=== PATIENT | female | born 1960 | race Caucasian/White ===

== ENCOUNTER 2016-04-13 07:41 | Inpatient (IN) ==
[2016-04-13] MEDS ORDERED: Mag Hydrox/Al Hydrox/Simeth 30 ML UDC PO PRN (07:50)
[2016-04-13] MEDS ORDERED: Haloperidol Lactate 5 MG/ML VIAL IM PRN (07:50)
[2016-04-13] MEDS ORDERED: *HR* LORazepam 1 MG TABLET PO PRN (07:50)
[2016-04-13] MEDS ORDERED: traZODone 50 MG TABLET PO PRN (07:50)
[2016-04-13] MEDS ORDERED: Ibuprofen 400 MG TABLET PO PRN (07:50)
[2016-04-13] MEDS ORDERED: MOM Conc 10 ML UD.LIQ PO PRN (07:50)
[2016-04-13] MEDS ORDERED: *HR* LORazepam 2 MG/ML VIAL IM PRN (07:50)
[2016-04-13] MEDS ORDERED: SIMVASTATIN 80 MG PO SCH (09:00)
[2016-04-13] MEDS: Sulfamethoxazole/Trimeth DS 1 EACH TABLET PO SCH ×2 (10:38→21:03)
[2016-04-13] MEDS: Lithium Carbonate 300 MG CAPSULE PO SCH (10:40)
[2016-04-13] MEDS: Topiramate 100 MG TABLET PO SCH ×2 (10:40→21:03)
--- NOTE | 2016-04-13 12:23 | Psychiatry History & Physical ---
Date of Encounter: 04/13/16 Time of Encounter: 11:40 History of Present Illness Patient Stated Chief Complaint: "I have thoughts of hurting myself." Medicare Admission Attestation: For traditional Medicare patients the provided hospital inpatient services are reasonable and necessary and in the case of services not specified as inpatient -only under 42 CFR 419.22 (n), that they are appropriately provided as inpatient services in accordance 42 CFR 412.3. For Critical Access Hospital the patient may reasonably be expected to be discharged or transferred to a hospital within 96 hours after admission to the Critical Access Hospital. Admitted From: Direct Admit Plans for Post Hospital Care: Home History of Present Illness: Ms. Cuevas is a 56 year old female with a history of bipolar disorder and anxiety symptoms. She presented to an outside hospital after having intrusive suicidal thoughts from what she believes was a medication issue. Patient was accepted and admitted to [facility] for psychiatric stabilization. During a recent outpatient appointment in early March patient's lithium was decreased and her Topamax was also decreased. She also stopped Depakote as she was taking this at a low dose. She does continue to take Saphris 10 mg at bedtime, Cymbalta 120 mg by mouth daily. Patient noted that with the decrease of the Topamax she started to have intrusive suicidal thoughts. She does not want to hurt herself and sometimes the thoughts are not even of killing herself just of hurting herself. This worsened over the past week or so as she went down to the lower dose of Topamax. Her psychiatrist recommended the dosage be increased back to 100 mg twice a day but patient had not noted any improvement and so she went to the ER. Today she continues to report intrusive suicidal thoughts although they have improved. She reports that her mood is slightly better now that she knows she is in a safe place. She denies auditory or visual hallucinations. She does have a recent admission to the hospital within the past year (August 2015) and at that point the Depakote was added to her other medications. Patient is aware that she is on multiple mood stabilizers and that many of these can be causing interactions. Past Med Surg Social Fam HX - Past Medical History Medical history: GERD - Past Psychiatric History Psychiatric history: Reports: anxiety, bipolar, depression, prior suicide attempt, previous psychiatric hospitalization Past psychiatric history details: Patient has a long-standing psychiatric history with previous admissions as well as a suicide attempt in the remote past. Family psychiatric history: No Family History of Suicide: None - Past Surgical History Surgical History: , cholecystectomy, hysterectomy - Social History Smoking Status: Never smoker Smokeless Tobacco Status: No Alcohol use: none Drug use: none Occupational status: disabled Current living situation: Home Activity Level: Independent ambulation Medications & Allergies Duloxetine HCl [Cymbalta] 120 mg PO DAILY 03/05/16 [History] Omeprazole [PriLOSEC] 40 mg PO BID 03/05/16 [History] Oxybutynin Chloride [Ditropan Xl] 10 mg PO DAILY 03/05/16 [History] Simvastatin [Zocor] 80 mg PO DAILY 03/05/16 [History] Asenapine Maleate [Saphris] 10 mg SL HS 04/13/16 [History] Divalproex (24 HR) [Depakote ER (24 HR)] 250 mg PO HS 04/13/16 [History] Ketorolac [Toradol] 10 mg PO Q8H 04/13/16 [History] Levothyroxine [Synthroid] 100 mcg PO DAILY 04/13/16 [History] Andrews Carbonate ER [Lithobid] 300 mg PO HS 04/13/16 [History] Topiramate [Topamax] 50 mg PO BID 04/13/16 [History] Allergies No Known Allergies Allergy (Verified 03/05/16 12:55) Review of Systems Constitutional: Denies: fever, chills, weakness, weight change Eyes: Denies: eye pain, vision change Ears, Nose, Throat: Denies: ear pain, throat pain, dental pain, hearing loss, congestion Cardiovascular: Denies: chest pain, palpitations, dyspnea on exertion Respiratory: Denies: cough, dyspnea, wheezes Gastrointestinal: Denies: abdominal pain, nausea, vomiting, diarrhea, constipation Genitourinary male: Denies: urgency, dysuria, frequency, genital lesions Genitourinary female: Denies: urgency, dysuria, frequency, abnormal menses, dyspareunia Musculoskeletal: Denies: joint swelling, joint pain Integumentary: Denies: rash, lesions, pruritus Neurological: Denies: headache, weakness, numbness, memory loss Psychiatric: Reports: depression, anxiety, abnormal sleep pattern, suicidal ideation, irritability, panic attacks Endocrine: Denies: fatigue, heat or cold intolerance Hematologic/Lymphatic: Denies: easy bruising, lymphadenopathy Allergic/Immunologic: Denies: urticaria, itchy eyes Mental Status Exam Patient orientation: Yes Person, Yes Time, Yes Place Level of alertness: Alert Patient appearance: Appropriate Behavior: cooperative, nervous Psychomotor activity: Slowed Eye contact: Maintains Eye Contact Mood description: Anxious Affect description: blunted Speech pattern: Normal rate, Normal rhythm, Normal tone Speech volume: Normal Thought process: Slowed Thinking Thought content: Yes Suicidal ideation Perceptual disturbances: No Auditory hallucinations, No Visual hallucinations Attention span: Capable of Focused Attention Memory description: Grossly Intact Patient reliability: Reliable Historian Intelligence estimate: Average Judgment: Fair Insight: Partial Results - Vital Signs Vital signs: Temp Pulse Resp BP 97.8 F 66 16 99/61 04/13/16 08:51 04/13/16 08:51 04/13/16 08:51 04/13/16 08:51 Assessment and Plan (1) Bipolar II disorder Current visit: Yes Status: Acute Plan: Admit inpatient for safety and stabilization, Close observation, Suicide Precautions per unit protocol, Encourage participation in unit milieu, Group Therapy, Monitor sleep, Monitor appetite Additional Plan: We will admit patient to 18 for stabilization. We will change from observation status to inpatient admission as patient is still voicing suicidal ideation and we may need to make medication changes. I have reviewed patient's outpatient records and will confirm with patient's pharmacy as she was not restarted on Saphris last night. We will increase her Topamax back to 100 mg by mouth twice a day. We will continue with other titrations down off her mood stabilizers in order to streamline medication. Encourage group attendance and monitor patient's behavior, mood, sleep, appetite. Risks, benefits, side effects, alternatives discussed w/pt: Yes Patient agreeable to treatment: Yes Plans for Post Hospital Care: Home Estimated Length of Stay (Days): 3 (2) Anxiety Current visit: Yes Status: Acute Plan: Admit inpatient for safety and stabilization, Close observation, Suicide Precautions per unit protocol, Encourage participation in unit milieu, Group Therapy, Monitor sleep, Monitor appetite Additional Plan: Patient has used Valium in the past for racing thoughts. Consider restarting this at a low dose when necessary as she is adjusting to new dosage. We can contact patient's daughter, who is involved with her care in regards to medication changes as well. There is some concern that patient's medications may be causing personality and cognitive changes by family. We will avoid starting too many sedating medicines. Risks, benefits, side effects, alternatives discussed w/pt: Yes Patient agreeable to treatment: Yes
[2016-04-13] MEDS ORDERED: diazePAM 2 MG TABLET PO PRN (12:28)
[2016-04-14] MEDS ORDERED: OLANZapine 5 MG TAB.RAPDIS PO ONE (00:15)
[2016-04-14 08:39] VITALS: BP 94/55
[2016-04-14] MEDS: Sulfamethoxazole/Trimeth DS 1 EACH TABLET PO SCH (09:18)
[2016-04-14] MEDS: Topiramate 100 MG TABLET PO SCH (09:19)
[2016-04-14] MEDS: Lithium Carbonate 300 MG CAPSULE PO SCH (09:19)
--- NOTE | 2016-04-14 12:28 | Discharge Summary ---
Date of Encounter: 04/14/16 Time of Encounter: 12:00 Diagnosis - Discharge Diagnosis (1) Bipolar II disorder Priority: Primary Status: Acute (2) Anxiety Priority: Secondary Status: Acute Medications - Discharge Medications Prescriptions: Sulfamethoxazole/Trimeth DS [Bactrim Ds] 1 each PO BID #2 tablet Topiramate [Topamax] 100 mg PO BID #60 tablet Duloxetine HCl [Cymbalta] 120 mg PO DAILY 03/05/16 [History] Omeprazole [PriLOSEC] 40 mg PO BID 03/05/16 [History] Oxybutynin Chloride [Ditropan Xl] 10 mg PO DAILY 03/05/16 [History] Simvastatin [Zocor] 80 mg PO DAILY 03/05/16 [History] Asenapine Maleate [Saphris] 10 mg SL HS 04/13/16 [History] Levothyroxine [Synthroid] 100 mcg PO DAILY 04/13/16 [History] Duloxetine [Cymbalta] 120 mg PO DAILY capsule. 04/14/16 [Rx] Levothyroxine [Synthroid] 100 mcg PO DAILY@0630 tablet 04/14/16 [Rx] Sulfamethoxazole/Trimeth DS [Bactrim Ds] 1 each PO BID #2 tablet 04/14/16 [Rx] Topiramate [Topamax] 100 mg PO BID #60 tablet 04/14/16 [Rx] Allergies No Known Allergies Allergy (Verified 03/05/16 12:55) Provider Date of admission: 04/13/16 12:35 Discharging clinician: Estrellita Fink Assessment and Plan - Patient/Caregiver Discharge Instructions Activity: resume usual activities as tolerated Diet: regular diet - Follow up Plan Functional capacity at discharge: independent ambulation Overall status at discharge: Stable Disposition: Home, Self-Care Hospital Course Hospital course: Ms. Cuevas is a 56 year old female with a history of bipolar disorder type II and anxiety symptoms who presented to the hospital with increasing intrusive thoughts of suicide as well as increased anxiety and depressed mood. She was admitted to for psychiatric stabilization. Patient was incorporated into the therapeutic milieu and offer group and individual as well as recreational therapy. She was also a psychoeducational materials and supportive therapy. She was placed on suicide precautions and close observation per unit protocol. Patient was restarted on her Cymbalta. Her taper up Topamax was increased back to 100 mg by mouth twice a day. Patient was taking lithium 300 once a day and was agreeable to discontinuing this to prevent polypharmacy. Her family was unable to bring in the medication and thus he did not get a dose of Saphris. She was given a dose of Zyprexa instead. Initially she was started on by because of racing thoughts and anxiety but patient did not take the medication and started to feel better without any extra anxiety medicines. Throughout the course of the hospital stay the patient's mood improved. She does think that the quick taper of the Topamax is what caused the initial issue with the intrusive thoughts. She denies any suicidal or homicidal ideation, intent, or plan today. She is willing to follow up with me as her outpatient psychiatrist. She will also start with therapy at a counseling center. Patient states that she would like to go home and continue to take medications until her follow-up appointment on 05/27/2016. She is discharged in stable condition. - Time Spent with Patient Total time spent providing and/or coordinating discharge services: Greater than 30 minutes Quality - Multiple Antipsychotics Patient discharged on 2 or more antipsychotic medications: No Procedures - Procedures Procedures: Medication Management, Crisis Stabilization, Supportive Therapy, Group Therapy, Psychoeducational Therapy Mental Status Exam - Mental Status Exam Patient orientation: Yes Person, Yes Time, Yes Place Level of alertness: Alert Patient appearance: Appropriate Behavior: calm, cooperative Psychomotor activity: Normal Eye contact: Maintains Eye Contact Mood description: Euthymic/stable Affect description: congruent with mood, full range Speech pattern: Normal rate, Normal rhythm, Normal tone Speech Volume: Normal Thought process: Intact, Logical, Goal Oriented Thought Content: Yes Intact, No Suicidal ideation, No Homicidal ideation Perceptual Disturbances: No Auditory hallucinations, No Visual hallucinations Judgment: Fair Insight: Partial
== END 2016-04-14 14:05 | disposition home or self-care (01) | DRG 885 ==
LOC: 1ANU 07:41 → INTOOBSV 07:41
PROVIDERS: ADMIT Student in an Organized Health Care Education/Training Program; ATTEND Student in an Organized Health Care Education/Training Program

== ENCOUNTER 2019-04-29 16:53 | Observation (INO) ==
[2019-04-29] MEDS ORDERED: Morphine Sulfate 2 MG/ML SYRINGE IVP STA (20:33)
[2019-04-29 21:16] LABS: Basophils # 0.1 K/mcL (0.0-0.2); Basophils % 0.7 %; Eosinophils # 0.2 K/mcL (0.0-0.6); Eosinophils % 2.6 %; Hematocrit 37.6 % (35.3-44.9); Hemoglobin 12.2 g/dL (11.5-15.4); Immature Granulocytes % 0.3 % (0-4); Lymphocytes % 33.4 %; Mean Corpuscular HGB Conc 32.4 g/dL (31.6-35.5); Mean Corpuscular Volume 95.4 fL (83.0-100.0); Mean Platelet Volume 8.8 fL (9.4-12.4); Monocytes # 0.7 K/mcL (0.0-1.3); Monocytes % 7.3 %; Platelet Count 341 K/mcL (140-400); Red Blood Count 3.94 M/mcL (3.82-4.97); Red Cell Distribution Width 12.1 % (11.5-14.5); Segmented Neutrophils % 55.7 %
[2019-04-29 21:38] LABS: BUN/Creatinine Ratio 20 (6-26); Blood Urea Nitrogen 16 mg/dL (6-20); C-Reactive Protein 6 mg/L (Less than 10); Calcium 9.5 mg/dL (8.6-10.3); Carbon Dioxide 26 mEq/L (23-29); Chloride 109 mEq/L (98-107); Glucose 91 mg/dL (70-105); Osmolality,Calculated 291 (280-300); Potassium 3.7 mEq/L (3.5-5.1); Sodium 140 mEq/L (136-145); eGFR For African Americans > 60 (> 60); eGFR For Non-African Americans > 60 (> 60)
[2019-04-30] MEDS ORDERED: Naloxone 0.4 MG/ML INJ IVP PRN (00:38)
[2019-04-30] MEDS ORDERED: *HR* HYDROcodone/Acet 5/325 mg TABLET PO PRN (00:39)
[2019-04-30] MEDS ORDERED: SUMAtriptan succinate 25 MG TABLET PO PRN (02:49)
[2019-04-30 04:57] LABS: Basophils # 0.1 K/mcL (0.0-0.2); Basophils % 0.7 %; Eosinophils # 0.2 K/mcL (0.0-0.6); Eosinophils % 2.5 %; Hematocrit 33.6 % (35.3-44.9); Hemoglobin 11.1 g/dL (11.5-15.4); Immature Granulocytes % 0.2 % (0-4); Lymphocytes # 3.1 K/mcL (0.6-4.6); Lymphocytes % 37.2 %; Mean Corpuscular Hemoglobin 31.7 pg (28.0-33.3); Mean Platelet Volume 8.8 fL (9.4-12.4); Monocytes # 0.7 K/mcL (0.0-1.3); Neutrophils # 4.2 K/mcL (1.6-8.9); Platelet Count 288 K/mcL (140-400); Red Cell Distribution Width 12.1 % (11.5-14.5); Segmented Neutrophils % 50.4 %; White Blood Count 8.3 K/mcL (4.3-11.1)
[2019-04-30 05:21] LABS: BUN/Creatinine Ratio 16 (6-26); Blood Urea Nitrogen 13 mg/dL (6-20); Calcium 9.1 mg/dL (8.6-10.3); Carbon Dioxide 27 mEq/L (23-29); Chloride 110 mEq/L (98-107); Glucose 104 mg/dL (70-105); Osmolality,Calculated 292 (280-300); Potassium 3.9 mEq/L (3.5-5.1); Sodium 141 mEq/L (136-145); eGFR For African Americans > 60 (> 60); eGFR For Non-African Americans > 60 (> 60)
[2019-04-30] MEDS ORDERED: *HR* Heparin 5,000 UNIT/ML VIAL SQ SCH (06:00)
[2019-04-30] MEDS ORDERED: BuPROPion XL (24 HR) 150 MG TABLET PO SCH (09:00)
[2019-04-30] MEDS ORDERED: Topiramate 100 MG TABLET PO SCH ×2 (09:00→21:00)
[2019-04-30] MEDS ORDERED: NARATRIPTAN HCL 1 MG PO SCH (09:00)
[2019-04-30] MEDS ORDERED: cephALEXin 250 MG CAPSULE PO SCH (09:00)
[2019-04-30] MEDS: *HR* HYDROcodone/Acet 5/325 mg TABLET PO PRN ×2 (10:18→18:19)
[2019-04-30] MEDS ORDERED: Ondansetron 4 MG/2 ML VIAL IVP PRN (14:20)
[2019-05-01 07:20] VITALS: BP 146/76
[2019-05-01 14:20] LABS: Basophils # 0.1 K/mcL (0.0-0.2); Basophils % 0.8 %; Eosinophils # 0.2 K/mcL (0.0-0.6); Eosinophils % 2.3 %; Hematocrit 35.7 % (35.3-44.9); Hemoglobin 11.8 g/dL (11.5-15.4); Immature Granulocytes % 0.3 % (0-4); Lymphocytes # 2.4 K/mcL (0.6-4.6); Lymphocytes % 27.4 %; Mean Corpuscular HGB Conc 33.1 g/dL (31.6-35.5); Mean Corpuscular Hemoglobin 32.1 pg (28.0-33.3); Mean Platelet Volume 9.2 fL (9.4-12.4); Monocytes # 0.6 K/mcL (0.0-1.3); Monocytes % 7.1 %; Neutrophils # 5.3 K/mcL (1.6-8.9); Platelet Count 302 K/mcL (140-400); Red Blood Count 3.68 M/mcL (3.82-4.97); Segmented Neutrophils % 62.1 %; White Blood Count 8.6 K/mcL (4.3-11.1)
[2019-05-01] MEDS ORDERED: Aminoglycoside Consult 1 EACH MC ONE (18:59)
[2019-05-02 01:04] LABS: BUN/Creatinine Ratio 16 (6-26); Blood Urea Nitrogen 12 mg/dL (6-20); Calcium 9.4 mg/dL (8.6-10.3); Carbon Dioxide 26 mEq/L (23-29); Chloride 106 mEq/L (98-107); Glucose 127 mg/dL (70-105); Osmolality,Calculated 287 (280-300); Potassium 3.8 mEq/L (3.5-5.1); Sodium 138 mEq/L (136-145); eGFR For African Americans > 60 (> 60); eGFR For Non-African Americans > 60 (> 60)
== END 2019-05-01 19:00 | disposition home or self-care (01) ==
LOC: 3NENU 16:53 → EMEROOARM 16:53 → SUATTDRO 04-30 00:34 → 3NENU 04-30 01:31
PROVIDERS: ADMIT Student in an Organized Health Care Education/Training Program; ATTEND Internal Medicine
PROC: IRFLUID (~2019-04-29)